=== PATIENT | female | born 1955 | race Hispanic/Latino ===

== ENCOUNTER → 2018-03-09 | Outpatient (CLI) | payer MEDICARE | END | disposition home or self-care (01) | LOC: RAH 13:39 | PROVIDERS: ATTEND Family Medicine | DX: M71.22 Synovial cyst of popliteal space [Baker], left knee (principal); M17.12 Unilateral primary osteoarthritis, left knee | CPT/HCPCS: 73562; 93970 ==

== ENCOUNTER → 2018-07-10 | Outpatient (CLI) | payer MEDICARE | END | disposition home or self-care (01) | LOC: RAH 11:56 | PROVIDERS: ATTEND Family Medicine | DX: M71.22 Synovial cyst of popliteal space [Baker], left knee (principal) | CPT/HCPCS: 93925 ==

== ENCOUNTER → 2021-05-10 | Outpatient (CLI) | payer MEDICARE | END | disposition home or self-care (01) | LOC: RAH 12:59 | PROVIDERS: ATTEND Family Medicine | DX: M71.22 Synovial cyst of popliteal space [Baker], left knee (principal); M17.12 Unilateral primary osteoarthritis, left knee; M85.80 Other specified disorders of bone density and structure, unspecified site; M25.762 Osteophyte, left knee; R60.0 Localized edema | CPT/HCPCS: 73562; 76882; 93970 ==

== ENCOUNTER 2023-04-20 11:50 | Emergency (ER) | payer OTHER, MEDICARE ==
[~2023-04-20] VITALS: Ht 157.5 cm; Wt 98.0 kg
[2023-04-20 11:51] VITALS: BP 147/78
[2023-04-20] MEDS ORDERED: ACET-66 PO (12:35)
[2023-04-20] MEDS ORDERED: IBUP-2071 PO (12:35)
== END 2023-04-20 14:06 | disposition home or self-care (01) ==
LOC: EDH 11:50
DX: M54.50 Low back pain, unspecified (principal); I10 Essential (primary) hypertension; E11.9 Type 2 diabetes mellitus without complications; Z79.899 Other long term (current) drug therapy
CPT/HCPCS: 99282

== ENCOUNTER → 2024-03-09 | Outpatient (CLI) | payer MEDICARE ==
[~2024-03-09] MED LIST: ACET-66 PO; DIATR MEGLU/DIATRIZOATE SODIUM 30 ML BOTTLE ONE; IBUP-2071 PO
== END | disposition home or self-care (01) ==
LOC: RAH 09:56
PROVIDERS: ATTEND Family Medicine
DX: R93.3 Abnormal findings on diagnostic imaging of other parts of digestive tract (principal); Z93.1 Gastrostomy status
CPT/HCPCS: 74240; Q9963